=== PATIENT | female | born 1950 | race Caucasian/White ===

== ENCOUNTER 2020-05-10 13:24 | Emergency (ER) | payer MEDICARE, SELFPAY ==
[2020-05-10 13:36] VITALS: BP 135/69; PULSE 75; RESP 20; TEMP 36.9; O2SAT 97
--- NOTE | 2020-05-10 13:43 | ED.SKABFB ---
HPI - Skin/Abscess/Foreign Bdy General Chief complaint: Skin/Abscess/Foreign Body Stated complaint: Rash Time Seen by Provider: 05/10/20 13:43 Source: patient and RN notes reviewed Mode of arrival: ambulatory Limitations: no limitations History of Present Illness HPI narrative: 69 year old female who presents to [facility] care with complaints of generalized rash to her upper chest, posterior neck and upper back, ears and stomach for the past week duration. Patient states that her family went to [place] for a week over and and rented a house there. She states that all of her grandsons were there and other family with no one else having any rash. Patient denies any new foods, new medications, new lotions, laundry soap, makeup or any new bath soaps. Patient states that the rash is very itchy and has been taking Benadryl orally and also applying Benadryl cream to rash areas, some scabbing noted from patient scratching area. patient denies any fevers, chills or any sore throat, she denies any difficulty with swallowing or with her breathing. MD complaint: rash Onset (ago): week(s) (1) Location: head (ears), neck, chest and back Severity: moderate Severity scale (1-10): 6 Quality: aching and pruritic Pain Consistency: colicky Relieving factors: none Exacerbating factors: palpation Context: none Associated symptoms: denies other symptoms Treatments prior to arrival: OTC topical medication and Benadryl Related Data Home Medications Medication Instructions Recorded Confirmed atorvastatin 20 mg PO DAILY 05/10/20 05/10/20 citalopram 20 mg PO DAILY 05/10/20 05/10/20 esomeprazole magnesium 40 mg PO DAILY 05/10/20 05/10/20 fluticasone propionate 50 mcg INTRANASAL DAILY 05/10/20 05/10/20 levocetirizine 5 mg PO DAILY 05/10/20 05/10/20 Allergies Allergy/AdvReac Type Severity Reaction Status Date / Time codeine AdvReac Mild Nausea Verified 05/10/20 13:29 Review of Systems Review of Systems: Narrative: CONSTITUTIONAL: Denies fever, chills, or sweats. EYES: Denies visual changes, redness, or discharge. ENT: Denies rhinorrhea, congestion, sore throat, or otalgia, dryness to outer ears and itchy behind ears with rash. CARDIOVASCULAR: Denies chest pain, palpitations, or edema. RESPIRATORY: Denies cough or dyspnea. GASTROINTESTINAL: Denies abdominal pain, nausea, vomiting, or diarrhea. GENITOURINARY: Denies dysuria or hematuria. SKIN: positive for red minimally raised rash with itching to upper chest, neck and upper back, behind ears, and on stomach area. MUSCULOSKELETAL: Denies back pain, joint pain, or myalgia. NEUROLOGIC: Denies headache, numbness, or weakness. PSYCHIATRIC: Positive history of anxiety or depression. All systems reviewed & are unremarkable except as noted in HPI and below PMFSH Past Medical History Medical History (Updated 05/10/20 @ 14:38 by Ana Landon NP) Asthma Hyperlipidemia Seasonal allergies Surgical History Surgical History (Updated 05/10/20 @ 14:38 by Ana Landon NP) H/O bilateral cataract extraction H/O sinus surgery History of tubal ligation History of tympanoplasty of left ear Family History Family History (Updated 05/10/20 @ 14:30 by Ana Landon NP) Grandparent Cerebrovascular accident Social History Social History Gender identity (if verbalized by the patient): Female Comments At time of signature, agree with nursing past medical, surgical, social and family history. There is no relevant family history pertinent to the presenting complaint Exam Narrative: Exam Narrative: seasonalGENERAL: Well-appearing, well-nourished, and in no acute distress. HEAD: Normocephalic, atraumatic. EYES: PERRLA and EOMI. ENT: Nares clear, no rhinorrhea or epistaxis. Mucous membranes moist.TM's normal with good light reflex right, dull left, outer ears dry with rash behind ears with itching, throat with no redne
[2020-05-10] MEDS: methylPREDNISolone ACETATE 80 MG/ML VIAL IM (13:58)
== END 2020-05-10 14:16 | disposition home or self-care (01) ==
PROVIDERS: Emergency Provider Registered Nurse
DX: L23.9 Allergic contact dermatitis, unspecified cause (principal); J45.909 Unspecified asthma, uncomplicated; E78.5 Hyperlipidemia, unspecified
CPT/HCPCS: 96372; 99213; G0463; J1040

== ENCOUNTER → 2020-09-16 16:21 | Outpatient (CLI) | payer MEDICARE, SELFPAY ==
--- NOTE | ~2020-09-16 | MM_ITS ---
EXAMINATION: MM screening elena BI w martínez HISTORY: Screening mammogram TECHNIQUE: Craniocaudal and mediolateral oblique 3-D tomosynthesis images were obtained and synthetic 2-D images were generated. CAD analysis was submitted and interpreted. COMPARISON: No prior mammogram is currently available for comparison. BREAST PARENCHYMAL COMPOSITION: The breasts are heterogeneously dense, which may obscure small masses . FINDINGS: RIGHT BREAST: There is no evidence of suspicious mass, calcification, or architectural distortion to suggest malignancy. LEFT BREAST: There is focal asymmetry in the posterior third of the upper outer quadrant of the breas t. IMPRESSION: 1. Left breast focal asymmetry. 2. Additional mammographic views and possible breast ultrasound are recommended. BI-RADS Category 0: Incomplete: Needs additional imaging evaluation. Reviewed, dictated and finalized at location A. IMPRESSION: 1. Left breast focal asymmetry. 2. Additional mammographic views and possible breast ultrasound are recommended . BI-RADS Category 0: Incomplete: Needs additional imaging evaluation.
--- NOTE | ~2020-09-16 | DEXA_ITS ---
Bone Density Report Name: Luciana Gastelum Age: 69 Sex: Female Ethnicity: White Date of : 1950 Indication: postmenopausal; screening for osteoporosis; Referring Provider: CHRISTI SAWYER Study: Bone densitometry was performed. Exam Date: September 16, 2020 Accession number: [id number] Bone Density: Region BMD T-score Z-score Classification AP Spine (L1-L4) 0.942 -1.0 1.2 Normal Femoral Neck (Left) 0.905 0.5 2.3 Normal Total Hip (Left) 0.990 0.4 1.9 Normal Femoral Neck (Right) 0.734 -1.0 0.8 Normal Total Hip (Right) 0.815 -1.0 0.5 Normal Total Hip Mean 0.903 -0.3 1.2 Normal World Health Organization criteria for BMD impression classify patients as: Normal (T-score at or above -1.0), Osteopenia (T-score between -1.0 and -2.5), or Osteoporosis (T-score at or below -2.5). 10-year Fracture Risk: FRAX not reported because: All T-scores for Spine Total, Hip Total, Femoral Neck at or above -1.0 Clinical Information Provided by Patient: Has used the following medications: Vitamin D, Calcium Patient maximum height was 67 Menopause Age: 44 Drinks caffeinated beverages Onset of menses at age 12 Number of children 2 Impression: The patient has normal bone mass. Discussion: BONE DENSITY IS ABOVE THE MINIMUM DESIRABLE LEVEL AT ALL SKELETAL SITES TESTED. This patient?s bone mineral density is above the minimum desirable level (T-score -1.0 or better) at all sites measured. The patient should follow a healthful lifestyle (good nutrition with adequate calcium and vitamin D, and appropriate weight-bearing exercise). Follow-Up: Consider repeating this study in 5 years or sooner if there is some new clinical indication. Reported by: [facility] on 09/16/2020 4:54:00 PM. Reviewed, dictated and finalized at location [facility] LOBATO
== END ==
PROVIDERS: PCP Family Medicine; Visit Provider Family Medicine
DX: Z12.31 Encounter for screening mammogram for malignant neoplasm of breast (principal); Z78.0 Asymptomatic menopausal state; R92.8 Other abnormal and inconclusive findings on diagnostic imaging of breast
CPT/HCPCS: 77063; 77067; 77080

== ENCOUNTER → 2020-10-12 08:52 | Outpatient (CLI) | payer MEDICARE, SELFPAY ==
--- NOTE | ~2020-10-12 | MMUS_ITS ---
EXAMINATION: MM diagnostic mammo unilat LT, US breast LT limited HISTORY: Focal asymmetry in posterior third of upper outer quadrant of left breast reported on 021 screening mammogram TECHNIQUE: Additional 3-D tomosynthesis images of the left breast were performed and synthetic 2-D im ages were generated. Rolled medial and rolled lateral craniocaudal views. CAD analysis was submitted and interpreted. High resolution left upper outer quadrant breast ultrasound was performed. COMPARISON: 09/16/2020 bilateral digital screening mammogram FINDINGS: MAMMOGRAPHIC FINDINGS: No reproducible mass or architectural distortion, malignant calcification, skin thickening or retract ion is evident. ULTRASOUND: No suspicious mass, cyst or suspicious shadowing of the upper outer quadrant of the left breast is de tected sonographically. IMPRESSION: 1. No mammographic evidence of malignancy 2. Routine mammographic screening is recommended. BI-RADS Category 1: Negative Reviewed, dictated and finalized at location A. IMPRESSION: 1. No mammographic evidence of malignancy 2. Routine mammographic screening is recommended. BI-RADS Category 1: Negative
== END ==
PROVIDERS: Visit Provider Physician Assistant
DX: R92.8 Other abnormal and inconclusive findings on diagnostic imaging of breast (principal)
CPT/HCPCS: 76642; 77065

== ENCOUNTER → 2021-11-09 12:40 | Outpatient (CLI) | payer MEDICARE, SELFPAY ==
--- NOTE | ~2021-11-09 | CT_ITS ---
EXAMINATION: CT abd pelvis lumbar w con DATE: 11/09/2021 13:23 INDICATION: Low abdominal pain, indigestion low back and, left hip pain. Abnormal alkaline phosphatas e level. TECHNIQUE: Computed tomography (CT) of the abdomen and pelvis and lumbar spine was performed with 100 CC Omnipaque 300 intravenous contrast. Automated exposure control and iterative reconstruction techn ique were employed. Exam dose: 910.17 mGy-cm total exam DLP. COMPARISON: None. FINDINGS: Minimal bilateral lower lower lobe dependent atelectasis. 3.7 mm peripheral left lower lobe pulmonary nodule. No consolidation or mass lesion is noted at the l jerod bases otherwise. Normal heart size. No pericardial or pleural effusion. The liver, gallbladder, bile ducts, spleen, pancreas, pancreatic duct, and adrenal glands and kidneys are unremarkable with the exception of probable 4.5 mm upper pole right renal cyst. A much smaller l eft lower pole probable renal cyst. No ureteral calculus or hydroureteronephrosis. The urinary bladde r, uterus and adnexal areas are unremarkable. There is atherosclerotic calcification but normal caliber of the abdominal aorta. No intraperitoneal or retroperitoneal or pelvic mass lesion or adenopathy or ascites is noted. Normal appendix. Scattered diverticula of the colon; no CT evidence of diverticulitis. No bowel obstruction, bowel wal l thickening, pneumatosis or intraperitoneal free air is detected. Small fat-containing umbilical hernia. T11 vertebral body hemangioma. Moderate degenerative disc disease at L1-2. Moderately severe degenerative disc disease at L2-3 with associated mild retrolisthesis. There is mild degenerative disc disease at L3-4 and L4-5 moderately p rominent degenerative disc disease at L5-S1. No spondylolysis is noted. No suspicious osteolytic or osteoblastic lesions are noted. IMPRESSION: 2.7 mm peripheral left lower lobe pulmonary nodule Diverticulosis of the colon; no evidence of diverticulitis T11 vertebral body hemangioma Multilevel degenerative disc disease of the lumbar spine Reviewed, dictated and finalized at Location A. Reviewed, dictated and finalized at location A.
[2021-11-09 13:07] LABS: Estimated Glomerular Filt Rate > 60
== END ==
PROVIDERS: PCP Family Medicine; Visit Provider Family Medicine
DX: R74.8 Abnormal levels of other serum enzymes (principal); R91.1 Solitary pulmonary nodule; M51.36 Other intervertebral disc degeneration, lumbar region; K57.30 Diverticulosis of large intestine without perforation or abscess without bleeding
CPT/HCPCS: 72132; 74177; Q9967

== ENCOUNTER → 2021-11-18 10:47 | Outpatient (CLI) | payer MEDICARE, SELFPAY ==
--- NOTE | ~2021-11-18 | US_ITS ---
US abdomen limited INDICATION: Abnormal liver function tests PROCEDURE: Realtime right upper abdominal ultrasound. COMPARISON: No prior studies for comparison. FINDINGS: The pancreas is normal without focal mass or pancreatic ductal dilation. Liver echotexture is normal without focal mass or intrahepatic biliary dilatation. There is normal directional flow i n the portal vein. The gallbladder is normal without stones, gallbladder wall thickening or pericholecystic fluid. Comm on bile duct measures 4 mm. No sonographic Tate's sign. IMPRESSION: 1: Normal limited abdominal ultrasound. Reviewed, dictated and finalized at location A.
== END ==
PROVIDERS: PCP Family Medicine; Visit Provider Family Medicine
DX: R74.8 Abnormal levels of other serum enzymes (principal)
CPT/HCPCS: 76705

== ENCOUNTER → 2021-12-14 15:33 | Outpatient (CLI) | payer MEDICARE, SELFPAY ==
--- NOTE | ~2021-12-14 | MM_ITS ---
EXAMINATION: MM screening [facility] BI w martínez HISTORY: Screening mammogram TECHNIQUE: Craniocaudal and mediolateral oblique 3-D tomosynthesis images were obtained and synthetic 2-D images were generated. CAD analysis was submitted and interpreted. COMPARISON: 10/12/2020, 09/16/2020 BREAST PARENCHYMAL COMPOSITION: The breasts are heterogeneously dense, which may obscure small masses . FINDINGS: There is no suspicious mass, calcification, or architectural distortion to suggest malignan cy in either breast. There has been no suspicious interval change. IMPRESSION: 1. No mammographic evidence of malignancy. 2. Recommend routine screening mammography in one year. BI-RADS Category 1: Negative Reviewed, dictated and finalized at location A.
== END ==
PROVIDERS: PCP Family Medicine; Visit Provider Family Medicine
DX: Z12.31 Encounter for screening mammogram for malignant neoplasm of breast (principal)
CPT/HCPCS: 77063; 77067

== ENCOUNTER 2022-01-04 11:36 | Day surgery (SDC) | payer MEDICARE, SELFPAY ==
[2021-11-22 07:56] VITALS: BMI 28.5
[2021-12-22 11:02] VITALS: BMI 27.3
--- NOTE | 2022-01-03 21:01 | P.PNAN_ITS ---
Anes - Initial Pre Proc Eval Procedure: Operation Date: 01/04/22 13:00 Proposed Procedures p Esophagogastroduodenoscopy - Art Wang MD Date/Time: 01/03/22 21:01 Surgeon: Art Wang MD Pre Op Diagnosis: Gerd and Cough Patient Data Age: 71 Gender: F Height: 1.68 m Weight: 77 kg Allergies Allergy/AdvReac Type Severity Reaction Status Date / Time codeine AdvReac Mild Nausea Verified 01/04/22 12:08 Home Medications Medication Instructions Recorded Confirmed Type atorvastatin 20 mg tablet 20 mg PO DAILY #90 tabs 03/17/21 01/04/22 Rx esomeprazole magnesium 40 mg 40 mg PO DAILY #90 caps 03/17/21 01/04/22 Rx capsule,delayed release fluticasone propionate 50 50 mcg intranasal DAILY #16 grams 03/17/21 01/04/22 Rx mcg/actuation nasal spray,suspension montelukast 10 mg tablet 10 mg PO DAILY #90 tabs 03/17/21 01/04/22 Rx levocetirizine 5 mg tablet 5 mg PO DAILY #90 tabs 06/16/21 01/04/22 Rx triamcinolone acetonide 0.1 % See Rx Instructions .Route 11/14/21 01/04/22 Rx topical cream .COMPLEX #80 grams citalopram 20 mg tablet See Rx Instructions .Route 12/15/21 01/04/22 Rx .COMPLEX #90 tabs Patient hx anesthesia problems: none Family hx anesthesia problems: none Results Review: All pre-operative results and documents have been reviewed as part of the pre- operative evaluation. [facility] Past Medical History Medical History Anxiety Chronic sinusitis GERD (gastroesophageal reflux disease) Hyperlipidemia MDD (major depressive disorder), recurrent episode, moderate Seasonal allergies Surgical History Surgical History H/O bilateral cataract extraction H/O sinus surgery History of tubal ligation History of tympanoplasty of left ear Family History Family History Grandparent Cerebrovascular accident Mother Kidney failure Social History Social History Social History: Smoking status: Never smoker Second hand tobacco smoke exposure: No Alcohol intake: never Substance use: never Substance use type: does not use Gender identity (if verbalized by the patient): Female Sexual Orientation (if Verbalized by the Patient): Straight or Heterosexual Spiritual care concerns: No Anes - Eval Final PreProcedure Day of Procedure 01/03/22 21:01 Patient weight: overweight Heart: regular rate and rhythm Lungs: clear to auscultation Airway: Mallampati scale class II Neurological: alert and oriented Last oral intake: >/= 8 hours ASA classification: II Emergent: no Anesthetic plan: proceed Anesthesia type and monitoring: general GIVS and standard monitoring Results Review: All pre-operative results and documents have been reviewed as part of the pre- operative evaluation. Informed Consent: The patient's anesthetic plan and its attendant risks and benefits were discussed with the patient/family/POA. Questions were solicited and answers provided to the satisfaction of the patient/family/POA.
[2022-01-04 12:10] VITALS: BP 108/84; PULSE 76; RESP 20; TEMP 36.5; O2SAT 98
[2022-01-04 12:11] VITALS: BMI 29.5
[2022-01-04] MEDS: LACTATED RINGERS 1,000 ML 150 ML IV CONT (12:21)
--- NOTE | 2022-01-04 12:47 | WPDANESEPPF ---
Anes - Initial Pre Proc Eval Procedure: Operation Date: 01/04/22 13:00 Proposed Procedures p Esophagogastroduodenoscopy - Art Wang MD Date/Time: 01/04/22 12:47 Surgeon: Art Wang MD Pre Op Diagnosis: Gerd and Cough Patient Data Age: 71 Gender: F Height: 1.68 m Weight: 82.9 kg Last Vital Signs Temp 36.5 C 01/04/22 12:10 Pulse 76 01/04/22 12:10 Resp 20 01/04/22 12:10 BP 108/84 01/04/22 12:10 Pulse Ox 98 01/04/22 12:10 O2 Del Method Room Air 01/04/22 12:10 Allergies Allergy/AdvReac Type Severity Reaction Status Date / Time codeine AdvReac Mild Nausea Verified 01/04/22 12:08 Home Medications Medication Instructions Recorded Confirmed Type atorvastatin 20 mg tablet 20 mg PO DAILY #90 tabs 03/17/21 01/04/22 Rx esomeprazole magnesium 40 mg 40 mg PO DAILY #90 caps 03/17/21 01/04/22 Rx capsule,delayed release fluticasone propionate 50 50 mcg intranasal DAILY #16 grams 03/17/21 01/04/22 Rx mcg/actuation nasal spray,suspension montelukast 10 mg tablet 10 mg PO DAILY #90 tabs 03/17/21 01/04/22 Rx levocetirizine 5 mg tablet 5 mg PO DAILY #90 tabs 06/16/21 01/04/22 Rx triamcinolone acetonide 0.1 % See Rx Instructions .Route 11/14/21 01/04/22 Rx topical cream .COMPLEX #80 grams citalopram 20 mg tablet See Rx Instructions .Route 12/15/21 01/04/22 Rx .COMPLEX #90 tabs Patient hx anesthesia problems: none Family hx anesthesia problems: none Results Review: All pre-operative results and documents have been reviewed as part of the pre-operative evaluation. [facility] Past Medical History Medical History Anxiety Chronic sinusitis GERD (gastroesophageal reflux disease) Hyperlipidemia MDD (major depressive disorder), recurrent episode, moderate Seasonal allergies Surgical History Surgical History H/O bilateral cataract extraction H/O sinus surgery History of tubal ligation History of tympanoplasty of left ear Family History Family History Grandparent Cerebrovascular accident Mother Kidney failure Social History Social History Social History: Smoking status: Never smoker Second hand tobacco smoke exposure: No Alcohol intake: never Substance use: never Substance use type: does not use Living arrangements: with family Gender identity (if verbalized by the patient): Female Sexual Orientation (if Verbalized by the Patient): Straight or Heterosexual Spiritual care concerns: No Anes - Eval Final PreProcedure Day of Procedure 01/04/22 12:47 Patient weight: overweight Heart: regular rate and rhythm Lungs: clear to auscultation Airway: Mallampati scale class II Neurological: alert and oriented Last oral intake: >/= 8 hours ASA classification: II Emergent: no Anesthetic plan: proceed Anesthesia type and monitoring: general GIVS and standard monitoring Results Review: All pre-operative results and documents have been reviewed as part of the pre-operative evaluation. Informed Consent: The patient's anesthetic plan and its attendant risks and benefits were discussed with the patient/family/POA. Questions were solicited and answers provided to the satisfaction of the patient/family/POA.
--- NOTE | 2022-01-04 13:27 | PM.HPGS ---
History of Present Illness History of Present Illness Consent: Risks, benefits, and alternatives have been discussed and questions answered. Patient agrees to proceed with procedure. Chief complaint: Gerd and Cough Narrative: Luciana Gastelum is a 71 year old female with gerd controlled with daily nexium which has been taking for years, also chronic cough Review of Systems Constitutional: Constitutional: Denies headache(s) and Denies weakness Eyes: Eyes: Denies blurry vision ENT: Reports Normal hearing present, Denies headache(s) and Denies neck pain Cardiovascular: Cardiovascular: Denies chest pain and Denies dyspnea Respiratory: Respiratory: Denies dyspnea Gastrointestinal: Gastrointestinal: Reports no additional gastrointestinal complaints Genitourinary: Genitourinary: Denies dysuria Musculoskeletal: Musculoskeletal: Denies neck pain Integumentary/Breasts: Skin/Breast: Denies dry skin Neurologic: Reports Normal hearing present, Denies headache(s) and Denies weakness Psychiatric: Psychiatric: Denies anxiety Endocrine: Endocrine: Denies change in body appearance Hematologic/Lymphatic: Hematologic/Lymphatic: Denies easy bleeding Allergic/Immunologic: Allergic/Immunologic: Denies urticaria PMFSH Past Medical History Medical History Anxiety Chronic sinusitis GERD (gastroesophageal reflux disease) Hyperlipidemia MDD (major depressive disorder), recurrent episode, moderate Seasonal allergies Surgical History Surgical History H/O bilateral cataract extraction H/O sinus surgery History of tubal ligation History of tympanoplasty of left ear Family History Family History Grandparent Cerebrovascular accident Mother Kidney failure Social History Social History Social History: Smoking status: Never smoker Second hand tobacco smoke exposure: No Alcohol intake: never Substance use: never Substance use type: does not use Living arrangements: with family Gender identity (if verbalized by the patient): Female Sexual Orientation (if Verbalized by the Patient): Straight or Heterosexual Spiritual care concerns: No Meds Home Medications and Allergies Home Medications Medication Instructions Recorded Confirmed Type atorvastatin 20 mg tablet 20 mg PO DAILY #90 tabs 03/17/21 01/04/22 Rx esomeprazole magnesium 40 mg 40 mg PO DAILY #90 caps 03/17/21 01/04/22 Rx capsule,delayed release fluticasone propionate 50 50 mcg intranasal DAILY #16 grams 03/17/21 01/04/22 Rx mcg/actuation nasal spray,suspension montelukast 10 mg tablet 10 mg PO DAILY #90 tabs 03/17/21 01/04/22 Rx levocetirizine 5 mg tablet 5 mg PO DAILY #90 tabs 06/16/21 01/04/22 Rx triamcinolone acetonide 0.1 % See Rx Instructions .Route 11/14/21 01/04/22 Rx topical cream .COMPLEX #80 grams citalopram 20 mg tablet See Rx Instructions .Route 12/15/21 01/04/22 Rx .COMPLEX #90 tabs Allergies Allergy/AdvReac Type Severity Reaction Status Date / Time codeine AdvReac Mild Nausea Verified 01/04/22 12:08 Vital Signs Vital Signs - 24 hr 01/04/22 12:10 Temperature 97.7 F Pulse Rate 76 Respiratory Rate 20 Blood Pressure 108/84 Pulse Oximetry 98 Oxygen Delivery Room Air Exam Const: General: comfortable and no acute distress HENMT: General nose exam: Normal nares present Eyes: General: appearance normal, both eyes and all related structures Neck: Neck: no JVD Resp: Auscultation: clear to auscultation bilaterally Cardio: Rate: regular rate Rhythm: regular rhythm GI: Inspection: non-distended GI Palp: Yes Soft to palpation Skin: General skin exam: normal color Neuro: General: gait normal Speech: normal speech Extrem: General: normal to
[2022-01-04 13:46] VITALS: BP 108/62; PULSE 60; RESP 16; O2SAT 99
[2022-01-04 13:56] VITALS: BP 110/81; PULSE 65; RESP 20; O2SAT 99
--- NOTE | 2022-01-04 13:56 | WPDANESPN ---
Anes - Prog Note Post-Op Date/Time: 01/04/22 13:56 Cardiovascular status: normal Respiratory status: normal Airway patency: baseline Mental status: baseline Post-Op hydration status: normal Vital Signs: Last Vital Signs Temp 36.5 C 01/04/22 12:10 Pulse 76 01/04/22 12:10 Resp 20 01/04/22 12:10 BP 108/84 01/04/22 12:10 Pulse Ox 98 01/04/22 12:10 O2 Del Method Room Air 01/04/22 12:10 Pain Score (VAS): 0 Patient Feedback: Patient satisfied with anesthetic care.
[2022-01-04 14:06] VITALS: BP 116/88; PULSE 63; RESP 18; O2SAT 97
== END 2022-01-04 14:21 | disposition home or self-care (01) ==
PROVIDERS: PCP Family Medicine; Visit Provider Internal Medicine Gastroenterology
PROC: 0DJ08ZZ Inspection of Upper Intestinal Tract, Via Natural or Artificial Opening Endoscopic (ICD-10-PCS; CPT 43235; principal; 2022-01-04 13:00)
DX: K21.9 Gastro-esophageal reflux disease without esophagitis (principal)
CPT/HCPCS: 43239

== ENCOUNTER 2022-01-04 12:00 | Outpatient (NON) | payer MEDICARE, SELFPAY | END 2022-01-04 12:01 | disposition home or self-care (01) | LOC: ANHLAB 01-05 11:50 | PROVIDERS: PCP Family Medicine; Visit Provider Internal Medicine Gastroenterology | DX: K21.9 Gastro-esophageal reflux disease without esophagitis (principal) | CPT/HCPCS: 88305; 88342 ==

== ENCOUNTER → 2023-04-13 11:08 | Outpatient (CLI) | payer MEDICARE, SELFPAY ==
--- NOTE | ~2023-04-13 | XR_ITS ---
XR sinus min 3V 04/13/2023 11:39 Indication: Nasal fracture Procedure: 5 views of the sinuses. Comparison: No prior studies for comparison. Findings: There is pneumatization of the paranasal sinuses without significant opacification or air-f luid level. No significant nasal septal deviation. Nondisplaced nasal fracture identified on lateral view. Orbits are intact. Impression: 1: No significant sinus disease. Reviewed, dictated and finalized at location B. [employer] Impression: 1: No significant sinus disease.
== END ==
DX: S02.2XXA Fracture of nasal bones, initial encounter for closed fracture (principal); X58.XXXA Exposure to other specified factors, initial encounter
CPT/HCPCS: 70220

== ENCOUNTER 2024-08-22 12:17 | Outpatient (CLI) | payer MEDICARE, SELFPAY ==
--- NOTE | ~2024-08-22 | MM_ITS ---
EXAMINATION: MM screening elena BI w martínez HISTORY: Screening TECHNIQUE: Craniocaudal and mediolateral oblique 3-D tomosynthesis images were obtained and synthetic 2-D images were generated. CAD analysis was submitted and interpreted. COMPARISON: Comparison to multiple prior studies sequentially, with oldest reviewed study dated 09/16. BREAST PARENCHYMAL COMPOSITION: Not dense: There are scattered areas of fibroglandular density. FINDINGS: There are asymmetries of the right breast medially and laterally on CC view. The left breas t is stable without evidence for malignancy. IMPRESSION: 1. Right breast asymmetries. 2. Additional mammographic views and possible breast ultrasound are recommended. BI-RADS Category 0: Incomplete: Needs additional imaging evaluation. Reviewed, dictated and finalized at location B. IMPRESSION: 1. Right breast asymmetries. 2. Additional mammographic views and possible breast ultrasound are recommended . BI-RADS Category 0: Incomplete: Needs additional imaging evaluation.
== END 2024-08-22 12:18 | disposition home or self-care (01) ==
LOC: MICIMG 12:18
PROVIDERS: PCP Family Medicine; Visit Provider Student in an Organized Health Care Education/Training Program
DX: Z12.31 Encounter for screening mammogram for malignant neoplasm of breast (principal)
CPT/HCPCS: 77063; 77067

== ENCOUNTER 2024-09-12 08:25 | Outpatient (CLI) | payer MEDICARE, SELFPAY ==
--- NOTE | ~2024-09-12 | MMUS_ITS ---
EXAMINATION: MM diagnostic elena RT w martínez, US breast RT complete HISTORY: Follow-up right breast asymmetries TECHNIQUE: Additional 3-D tomosynthesis images of the right breast were performed and synthetic 2-D i mages were generated. CAD analysis was submitted and interpreted. High resolution complete right leora st ultrasound was performed. COMPARISON: Comparison to multiple prior studies sequentially, with oldest reviewed study dated 09/16. BREAST PARENCHYMAL COMPOSITION: Not dense: There are scattered areas of fibroglandular density. FINDINGS: MAMMOGRAPHIC FINDINGS: There are no suspicious masses, calcifications or architectural distortion in the right breast to sug gest malignancy. ULTRASOUND: Complete US of all 4 quadrants of the right breast/s and retroareolar region was reviewed. Normal het erogeneous echotexture without focal solid or cystic mass. IMPRESSION: 1. No evidence for malignancy in the right breast. 2. Routine yearly screening mammogram and regular clinical breast examination are recommended. BI-RADS Category 2: Benign finding(s). Reviewed, dictated and finalized at location A. IMPRESSION: 1. No evidence for malignancy in the right breast. 2. Routine yearly screening mammogram and regular clinical breast examination a re recommended. BI-RADS Category 2: Benign finding(s).
== END 2024-09-12 08:26 | disposition home or self-care (01) ==
LOC: MICIMG 08:26
PROVIDERS: PCP Family Medicine
DX: R92.8 Other abnormal and inconclusive findings on diagnostic imaging of breast (principal)
CPT/HCPCS: 76641; 77061; 77065; G0279